=== PATIENT | male | born 1980 | race Caucasian/White ===

== ENCOUNTER 2020-02-23 13:16 | Emergency (ER) | payer MEDICARE, MEDICAID ==
[~2020-02-23] VITALS: Ht 182.9 cm; Wt 100.0 kg
[~2020-02-23 13:16] MED LIST: CLOT15CR73 TP; HYDR-4353 PO; NO HOME MEDS
[2020-02-23 13:19] VITALS: BP 159/103
[2020-02-23] MEDS ORDERED: PENI250T2 PO (13:24)
[2020-02-23] MEDS ORDERED: NAPR-56 PO (13:24)
== END 2020-02-23 14:21 | disposition home or self-care (01) ==
LOC: ER 13:16
DX: K04.7 Periapical abscess without sinus (principal); J45.909 Unspecified asthma, uncomplicated; F12.90 Cannabis use, unspecified, uncomplicated; Z86.14 Personal history of Methicillin resistant Staphylococcus aureus infection; Z72.89 Other problems related to lifestyle; Z98.890 Other specified postprocedural states; Z79.899 Other long term (current) drug therapy
CPT/HCPCS: 93005; 99283

== ENCOUNTER 2020-03-11 17:44 | Emergency (ER) | payer MEDICARE, MEDICAID ==
[~2020-03-11] VITALS: Ht 182.9 cm; Wt 100.0 kg
[~2020-03-11 17:44] MED LIST changes: +NAPR-56 PO
[2020-03-11 17:50] VITALS: BP 163/107
[2020-03-11] MEDS ORDERED: AMOX-117 PO (19:23)
== END 2020-03-11 19:35 | disposition home or self-care (01) ==
LOC: ER 17:45
DX: K08.89 Other specified disorders of teeth and supporting structures (principal); J45.909 Unspecified asthma, uncomplicated; F12.90 Cannabis use, unspecified, uncomplicated; Z86.14 Personal history of Methicillin resistant Staphylococcus aureus infection; Z98.890 Other specified postprocedural states; Z72.89 Other problems related to lifestyle; Z79.2 Long term (current) use of antibiotics; Z79.899 Other long term (current) drug therapy
CPT/HCPCS: 99283

== ENCOUNTER 2020-12-11 19:45 | Emergency (ER) | payer MEDICARE, MEDICAID ==
[~2020-12-11 19:45] MED LIST changes: -NAPR-56 PO
== END 2020-12-11 20:51 | disposition left against medical advice (07) ==
LOC: ER 19:46
DX: Z53.21 Procedure and treatment not carried out due to patient leaving prior to being seen by health care provider (principal)

== ENCOUNTER 2022-07-17 21:18 | Emergency (ER) | payer MEDICARE, MEDICAID ==
[~2022-07-17] VITALS: Ht 182.9 cm; Wt 100.0 kg
[2022-07-17 21:36] VITALS: BP 149/86
[2022-07-17] MEDS ORDERED: CEPH-585 PO (22:09)
[2022-07-17] MEDS ORDERED: cephalexin 250mg capsule PO ONE (22:10)
== END 2022-07-17 22:18 | disposition home or self-care (01) ==
LOC: ER 21:18
DX: L03.115 Cellulitis of right lower limb (principal); J45.909 Unspecified asthma, uncomplicated; F12.10 Cannabis abuse, uncomplicated; Z86.14 Personal history of Methicillin resistant Staphylococcus aureus infection; Z79.899 Other long term (current) drug therapy
CPT/HCPCS: 99283

== ENCOUNTER 2022-09-19 04:04 | Emergency (ER) | payer MEDICARE, MEDICAID ==
[~2022-09-19] VITALS: Ht 182.9 cm; Wt 95.9 kg
[~2022-09-19 04:04] MED LIST changes: +CEPH-585 PO
[2022-09-19 07:09] LABS: CLARITY,URINE SLIGHTLY CLOUDY (Clear); COLOR,URINE YELLOW (Yellow); GLUCOSE, URINE NEGATIVE (Neg); KETONES,URINE NEGATIVE (Neg); LEUKOCYTE ESTERASE ,URINE NEGATIVE (Neg); NITRITES, URINE NEGATIVE (Neg); OCCULT BLOOD,URINE NEGATIVE (Neg); PROTEIN,URINE 30 mg/dl (Neg); UROBILINOGEN,URINE 0.2 E.U/dL (0.2-1.0)
[2022-09-19 07:20] LABS: UA COLLECTION TYPE URINAL
[2022-09-19 07:21] LABS: BACTERIA,URINE 2+ /HPF (Neg); MUCUS STRANDS MODERATE /LPF (Neg); RBC,URINE 0-2 /HPF (0-2); SQUAMOUS EPITHELIAL CELL,UR MODERATE /LPF (FEW); WBC,URINE 0-4 /HPF (0-4)
[2022-09-19] MEDS ORDERED: ketorolac tromethamine 15mg/ml inj. IV ONE (08:30)
[2022-09-19] MEDS ORDERED: normal saline 1000ml 1,000 ML IV SCH (08:30)
[2022-09-19 08:45] LABS: HEMOGLOBIN 14.3 g/dl (14.0-17.9); MEAN CORPUSCULAR HGB CONC 34.9 g/dL (33.0-36.5); MONOCYTES # (AUTO) 0.3 X10'3 (0-0.9); NEUTROPHILS # (AUTO) 2.2 X10'3 (1.8-7.7); PLATELET COUNT 101 X10'3 (140-440); WHITE BLOOD COUNT 2.9 X10'3 (4.5-11.0)
[2022-09-19 08:47] LABS: BASOPHILS % (AUTO) 0.4 % (0-1); EOSINOPHILS % (AUTO) 0.8 % (0-6); HEMATOCRIT 41.1 % (42.0-52.0); LYMPHOCYTES # (AUTO) 0.4 X10'3 (1.1-4.8); LYMPHOCYTES % (AUTO) 12.7 % (21-51); MEAN CORPUSCULAR HEMOGLOBIN 30.4 PG (27.0-31.0); MEAN CORPUSCULAR VOLUME 87.2 FL (78-98); MEAN PLATELET VOLUME 7.2 FL (7.4-10.4); MONOCYTES % (AUTO) 10.3 % (2-12); NEUTROPHILS % (AUTO) 75.8 % (42-75); RED BLOOD COUNT 4.71 X10'6 (4.70-6.10); RED CELL DISTRIBUTION WIDTH 13.5 % (11.5-14.5)
[2022-09-19 09:00] LABS: ALANINE AMINOTRANSFERASE 75 U/L (12-78); ALBUMIN 4.1 G/DL (3.4-5.0); ALBUMIN/GLOBULIN RATIO 1.2 (1.1-1.5); ALKALINE PHOSPHATASE 93 IU/L (46-116); ANION GAP 12 (8-16); ASPARTATE AMINO TRANSFERASE 44 U/L (10-37); BILIRUBIN,TOTAL 0.9 MG/DL (0.1-1.0); BLOOD UREA NITROGEN 17 MG/DL (7-18); BUN/CREATININE RATIO 18.9 (10.0-20.0); CALCIUM 8.9 MG/DL (8.5-10.1); CHLORIDE 104 MMOL/L (99-107); GLUCOSE 125 MG/DL (70-104); LIPASE < 50 U/L (73-393); POTASSIUM 3.9 MMOL/L (3.5-5.1); SODIUM 139 MMOL/L (135-145); TOTAL CARBON DIOXIDE 23.2 MMOL/L (24-32); TOTAL PROTEIN 7.5 G/DL (6.4-8.2); eGFR > 90 ML/MIN
[2022-09-19] MEDS ORDERED: FLO0.4C PO (09:37)
[2022-09-19] MEDS ORDERED: KETO10TA2 PO (09:37)
[2022-09-19 09:45] LABS: TOTAL CELLS COUNTED 100
[2022-09-19 09:46] LABS: PLATELET ESTIMATE DECREASED
[2022-09-19 09:50] LABS: ELLIPTOCYTES FEW
[2022-09-19 10:14] VITALS: TEMP 98.1
[2022-09-19 11:26] VITALS: BP 143/88; PULSE 79; RESP 16; O2SAT 96
== END 2022-09-19 11:28 | disposition home or self-care (01) ==
LOC: ER 04:05
DX: N20.0 Calculus of kidney (principal); J45.909 Unspecified asthma, uncomplicated; F12.10 Cannabis abuse, uncomplicated; Z86.14 Personal history of Methicillin resistant Staphylococcus aureus infection; Z79.899 Other long term (current) drug therapy
CPT/HCPCS: 36415; 80053; 81001; 83690; 85007; 85025; 96361; 96374; 99283; J1885; J7030; J7040

== ENCOUNTER 2023-11-06 08:01 | Emergency (ER) | payer MEDICARE, MEDICAID ==
[~2023-11-06] VITALS: Ht 182.9 cm; Wt 81.5 kg
[~2023-11-06 08:01] MED LIST changes: -CEPH-585 PO; +KETO10TA2 PO
[2023-11-06] MEDS: LIDOcaine 1% W/epiNEPHrine 1:100,000 20ml vial SQ ONE (08:50)
[2023-11-06 08:57] LABS: BASOPHILS % (AUTO) 0.4 % (0-1); EOSINOPHILS # (AUTO) 0.2 X10'3 (0-0.9); HEMATOCRIT 41.7 % (42.0-52.0); HEMOGLOBIN 14.4 g/dl (14.0-17.9); LYMPHOCYTES # (AUTO) 1.3 X10'3 (1.1-4.8); LYMPHOCYTES % (AUTO) 25.6 % (21-51); MEAN CORPUSCULAR HEMOGLOBIN 30.9 PG (27.0-31.0); MEAN CORPUSCULAR HGB CONC 34.5 g/dL (33.0-36.5); MEAN CORPUSCULAR VOLUME 89.5 FL (78-98); MEAN PLATELET VOLUME 7.3 FL (7.4-10.4); MONOCYTES # (AUTO) 0.4 X10'3 (0-0.9); MONOCYTES % (AUTO) 8.6 % (2-12); NEUTROPHILS # (AUTO) 3.2 X10'3 (1.8-7.7); NEUTROPHILS % (AUTO) 62.4 % (42-75); PLATELET COUNT 213 X10'3 (140-440); RED BLOOD COUNT 4.67 X10'6 (4.70-6.10); RED CELL DISTRIBUTION WIDTH 13.4 % (11.5-14.5); WHITE BLOOD COUNT 5.1 X10'3 (4.5-11.0)
[2023-11-06 09:00] LABS: BILIRUBIN,URINE NEGATIVE (Neg); CLARITY,URINE CLEAR (Clear); COLOR,URINE YELLOW (Yellow); GLUCOSE, URINE NEGATIVE (Neg); KETONES,URINE NEGATIVE (Neg); LEUKOCYTE ESTERASE ,URINE NEGATIVE (Neg); NITRITES, URINE NEGATIVE (Neg); OCCULT BLOOD,URINE NEGATIVE (Neg); PROTEIN,URINE TRACE mg/dl (Neg); UROBILINOGEN,URINE 0.2 E.U/dL (0.2-1.0)
[2023-11-06 09:06] LABS: UA COLLECTION TYPE CLN CATCH MIDSTREAM
[2023-11-06 09:08] LABS: BACTERIA,URINE NONE SEEN /HPF (Neg); MUCUS STRANDS MODERATE /LPF (Neg); RBC,URINE NONE SEEN /HPF (0-2); SQUAMOUS EPITHELIAL CELL,UR FEW /LPF (FEW); URIC ACID CRYSTALS FEW /HPF (NEGATIVE); WBC,URINE 0-4 /HPF (0-4)
[2023-11-06 09:23] LABS: ALANINE AMINOTRANSFERASE 30 U/L (12-78); ALBUMIN 4.1 G/DL (3.4-5.0); ALBUMIN/GLOBULIN RATIO 1.2 (1.1-1.5); ALKALINE PHOSPHATASE 72 IU/L (46-116); ANION GAP 8 (8-16); ASPARTATE AMINO TRANSFERASE 19 U/L (10-37); BILIRUBIN,TOTAL 0.5 MG/DL (0.1-1.0); BLOOD UREA NITROGEN 21 MG/DL (7-18); BUN/CREATININE RATIO 23.6 (10.0-20.0); CALCIUM 8.7 MG/DL (8.5-10.1); CHLORIDE 110 MMOL/L (99-107); CREATININE 0.89 MG/DL (0.60-1.10); GLUCOSE 112 MG/DL (70-104); LIPASE 26 U/L (16-77); POTASSIUM 3.8 MMOL/L (3.5-5.1); SODIUM 142 MMOL/L (135-145); TOTAL CARBON DIOXIDE 23.6 MMOL/L (24-32); TOTAL PROTEIN 7.4 G/DL (6.4-8.2); eCRCL 115 ML/MIN; eGFR > 90 ML/MIN
[2023-11-06] MEDS ORDERED: HYDR30CR79 TOP (10:36)
[2023-11-06] MEDS ORDERED: NITR30OI6 TOP (10:36)
[2023-11-06 11:02] VITALS: BP 154/88; PULSE 58; RESP 16; TEMP 98.5; O2SAT 96
== END 2023-11-06 11:03 | disposition home or self-care (01) ==
LOC: ER 08:01
DX: K64.8 Other hemorrhoids (principal); F12.90 Cannabis use, unspecified, uncomplicated; J45.909 Unspecified asthma, uncomplicated; Z79.899 Other long term (current) drug therapy; Z87.442 Personal history of urinary calculi; Z98.890 Other specified postprocedural states
CPT/HCPCS: 36415; 80053; 81001; 83690; 85025; 99283; A6402; Z7610; A6449

== ENCOUNTER 2024-06-04 09:06 | Emergency (ER) | payer MEDICARE, MEDICAID ==
[~2024-06-04] VITALS: Ht 182.9 cm; Wt 122.7 kg
[~2024-06-04 09:06] MED LIST changes: +HYDR30CR79 TOP; +NITR30OI6 TOP
[2024-06-04 09:42] LABS: BASOPHILS % (AUTO) 0.4 % (0-1); EOSINOPHILS % (AUTO) 0.5 % (0-6); HEMATOCRIT 40.4 % (42.0-52.0); HEMOGLOBIN 14.3 g/dl (14.0-17.9); LYMPHOCYTES # (AUTO) 0.7 X10'3 (1.1-4.8); LYMPHOCYTES % (AUTO) 8.8 % (21-51); MEAN CORPUSCULAR HGB CONC 35.4 g/dL (33.0-36.5); MEAN CORPUSCULAR VOLUME 87.7 FL (78-98); MEAN PLATELET VOLUME 7.5 FL (7.4-10.4); MONOCYTES # (AUTO) 0.5 X10'3 (0-0.9); MONOCYTES % (AUTO) 5.5 % (2-12); NEUTROPHILS # (AUTO) 7.2 X10'3 (1.8-7.7); NEUTROPHILS % (AUTO) 84.8 % (42-75); PLATELET COUNT 207 X10'3 (140-440); RED BLOOD COUNT 4.61 X10'6 (4.70-6.10); RED CELL DISTRIBUTION WIDTH 13.4 % (11.5-14.5); WHITE BLOOD COUNT 8.5 X10'3 (4.5-11.0)
[2024-06-04] MEDS: TETanus/Pertussis (Acell)/Diphther VAC/PF (Tdap-Adult) 0.5ml syringe IMVAC ONE (09:46)
[2024-06-04] MEDS: LIDOcaine 1% W/epiNEPHrine 1:100,000 20ml vial IJ ONE (09:49)
[2024-06-04 09:50] LABS: APTT 25 SECONDS (22-32); PROTHROMBIN TIME 10.3 SECONDS (9.0-12.0)
[2024-06-04] MEDS: morphine 2 MG/ML inj. syringe IV PRN (09:50)
[2024-06-04] MEDS: normal saline 1000ml 1,000 ML IV ONE (09:50)
[2024-06-04] MEDS ORDERED: iohexol 300mg/ml 100ml inj. ONE (09:51)
[2024-06-04 09:58] LABS: AMYLASE 72 U/L (25-115); CREATINE KINASE 167 U/L (39-308); LIPASE 35 U/L (16-77)
[2024-06-04 10:06] LABS: ETHANOL < 10 MG/DL (<10)
[2024-06-04 10:45] LABS: ANION GAP 14 (8-16); BILIRUBIN,TOTAL 0.4 MG/DL (0.1-1.0); BLOOD UREA NITROGEN 14 MG/DL (7-18); BUN/CREATININE RATIO 15.7 (10.0-20.0); CALCIUM 8.9 MG/DL (8.5-10.1); CHLORIDE 108 MMOL/L (99-107); CREATININE 0.89 MG/DL (0.60-1.10); GLUCOSE 132 MG/DL (70-104); POTASSIUM 3.7 MMOL/L (3.5-5.1); SODIUM 143 MMOL/L (135-145); TOTAL CARBON DIOXIDE 21.4 MMOL/L (24-32); TOTAL PROTEIN 7.2 G/DL (6.4-8.2); eCRCL 115 ML/MIN; eGFR > 90 ML/MIN
[2024-06-04 10:46] LABS: ALANINE AMINOTRANSFERASE 33 U/L (12-78); ALBUMIN 4.2 G/DL (3.4-5.0); ALBUMIN/GLOBULIN RATIO 1.4 (1.1-1.5); ALKALINE PHOSPHATASE 87 IU/L (46-116); ASPARTATE AMINO TRANSFERASE 15 U/L (10-37)
[2024-06-04 10:52] VITALS: TEMP 98.3
[2024-06-04 11:33] LABS: BILIRUBIN,URINE NEGATIVE (Neg); CLARITY,URINE CLEAR (Clear); COLOR,URINE YELLOW (Yellow); GLUCOSE, URINE NEGATIVE (Neg); KETONES,URINE NEGATIVE (Neg); LEUKOCYTE ESTERASE ,URINE NEGATIVE (Neg); OCCULT BLOOD,URINE NEGATIVE (Neg); PROTEIN,URINE 30 mg/dl (Neg); UROBILINOGEN,URINE 0.2 E.U/dL (0.2-1.0)
[2024-06-04] MEDS ORDERED: ketorolac trometh 30MG/ML vial 30 MG/ML VIAL IV ONE (11:45)
[2024-06-04] MEDS ORDERED: CYCL-1 PO (11:45)
[2024-06-04 11:46] LABS: UA COLLECTION TYPE CLN CATCH MIDSTREAM
[2024-06-04 11:47] LABS: NITRITES, URINE NEGATIVE (Neg)
[2024-06-04 11:53] LABS: SQUAMOUS EPITHELIAL CELL,UR FEW /LPF (FEW)
[2024-06-04 11:54] LABS: WBC,URINE 0-4 /HPF (0-4)
[2024-06-04 11:55] LABS: BACTERIA,URINE 1+ /HPF (Neg); RBC,URINE 0-2 /HPF (0-2)
[2024-06-04 12:00] LABS: COARSE GRANULAR CAST 0-3 /LPF (NEGATIVE)
[2024-06-04 12:02] LABS: URINE AMPHETAMINE SCREEN NEGATIVE (Neg); URINE BARBITUATE SCREEN NEGATIVE (Neg); URINE BENZODIAZEPINES SCREEN NEGATIVE (Neg); URINE CANNABINOID SCREEN POSITIVE (Neg); URINE COCAINE SCREEN NEGATIVE (Neg); URINE METHADONE SCREEN NEGATIVE (Neg); URINE OPIATE SCREEN NEGATIVE (Neg); URINE PHENCYCLIDINE SCREEN NEGATIVE (Neg)
[2024-06-04] MEDS: ketorolac trometh 15mg/ml vial 15 MG/ML ML IV ONE (12:06)
[2024-06-04 12:25] VITALS: BP 143/97; PULSE 80; RESP 16; O2SAT 99
== END 2024-06-04 12:28 | disposition home or self-care (01) ==
LOC: ER 09:07
DX: S01.01XA Laceration without foreign body of scalp, initial encounter (principal); S70.11XA Contusion of right thigh, initial encounter; S80.211A Abrasion, right knee, initial encounter; R51.9 Headache, unspecified; J45.909 Unspecified asthma, uncomplicated; Z79.899 Other long term (current) drug therapy; F15.90 Other stimulant use, unspecified, uncomplicated; Z72.89 Other problems related to lifestyle; Z87.442 Personal history of urinary calculi; V99.XXXA Unspecified transport accident, initial encounter; Y93.89 Activity, other specified; Y92.89 Other specified places as the place of occurrence of the external cause; Y99.8 Other external cause status
CPT/HCPCS: 12002; 12032; 36415; 70450; 71260; 72125; 73700; 74177; 80053; 80305; 81001; 82150; 82550; 83690; 83874; 84484; 85025; 85610; 85730; 90715; 93005; 99285; A6402; G0008; G0480; J7030; Q9967; Z7610; 12004; 80320; 90471; A6449

== ENCOUNTER 2024-06-05 09:12 | Emergency (ER) | payer MEDICARE, MEDICAID ==
[~2024-06-05] VITALS: Ht 182.9 cm; Wt 99.5 kg
[~2024-06-05 09:12] MED LIST changes: +CYCL-1 PO
[2024-06-05 09:16] VITALS: BP 151/92; PULSE 69; RESP 16; O2SAT 98
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
[2024-06-05 09:44] VITALS: TEMP 98.2
== END 2024-06-05 09:46 | disposition home or self-care (01) ==
LOC: ER 09:14
DX: S01.01XD Laceration without foreign body of scalp, subsequent encounter (principal); J45.909 Unspecified asthma, uncomplicated; F12.90 Cannabis use, unspecified, uncomplicated; Z72.89 Other problems related to lifestyle; Z87.442 Personal history of urinary calculi; Z79.899 Other long term (current) drug therapy; X58.XXXD Exposure to other specified factors, subsequent encounter
CPT/HCPCS: 99281; 99282